=== PATIENT | male | born 1995 | race Caucasian/White ===

== ENCOUNTER 2017-10-14 00:27 | Emergency (ER) | payer BC ==
[~2017-10-14] VITALS: Ht 182.9 cm; Wt 66.1 kg
[2017-10-14 00:39] VITALS: TEMP 36.7; Ht 182.9 cm; Wt 66.1 kg
[2017-10-14 02:06] VITALS: BP 126/90; PULSE 114; O2SAT 98
[2017-10-14] MEDS ORDERED: NORCO 5/325MG HOME PACK PO ONE (02:15)
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
== END 2017-10-14 02:26 | disposition home or self-care (01) ==
LOC: C.EDB 00:29
DX: S02.2XXA Fracture of nasal bones, initial encounter for closed fracture (principal); S00.91XA Abrasion of unspecified part of head, initial encounter; M54.2 Cervicalgia; Z87.828 Personal history of other (healed) physical injury and trauma; Y04.0XXA Assault by unarmed brawl or fight, initial encounter

== ENCOUNTER → 2018-01-08 | Outpatient (CLI) | payer BC ==
[2018-01-08 12:16] LABS: HEMATOCRIT 43.3 % (42-52); HEMOGLOBIN 15.5 g/dL (14.0-18.0); MEAN CELL VOLUME 88.9 fL (80-100); MEAN CORPUSCULAR HEMOGLOBIN 31.8 pg (25-34); MEAN CORPUSCULAR HGB CONC 35.8 g/dl (32-36); MEAN PLATELET VOLUME 10.2 fL (7.4-10.4); PLATELET COUNT 198 K/uL (130-400); RED CELL DISTRIBUTION WIDTH CV 13.2 % (11.5-14.5); WHITE BLOOD COUNT 6.69 K/uL (4.8-10.8)
== END | disposition home or self-care (01) ==
LOC: C.LAB 10:42
PROVIDERS: ATTEND Surgery Plastic and Reconstructive Surgery
DX: Z01.812 Encounter for preprocedural laboratory examination (principal)